=== PATIENT | female | born 1940 | race Caucasian/White ===

== ENCOUNTER 2016-12-26 08:49 | Outpatient (CLI) | payer OTHER ==
[2016-12-26 11:26] LABS: INR 2.6 (0.8-1.2); PT - PROTHROMBIN TIME 29.4 secs (9.9-12.6)
== END 2016-12-26 08:50 | disposition home or self-care (01) ==
LOC: LAB.F 08:49
PROVIDERS: ATTEND Emergency Medicine
DX: I63.9 Cerebral infarction, unspecified (principal)
CPT/HCPCS: 36415; 85610